=== PATIENT | female | born 1930 ===

== ENCOUNTER 2016-11-02 05:03 | Inpatient (IN) | payer MEDICARE ==
[2016-11-02 05:15] VITALS: BMI 25.5
--- NOTE | 2016-11-02 05:44 | C.PDOC ---
History Of Present Illness Patient BIBA for evaluation of nausea prior to arrival. Patient states her nausea has resolved. Daughter at bedside states patient has had a nonproductive cough fever several days, and had temp of 102.8 prior to ED arrival. 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) Current Symptoms Are (Timing): Better Severity: Mild Past Medical History Reviewed: Historical Data, Nursing Documentation, Vital Signs Vital Signs: Last Vital Signs Temp 98.5 F 11/03/16 15:41 Pulse 60 11/03/16 15:41 Resp 18 11/03/16 15:41 BP 97/59 L 11/03/16 15:41 Pulse Ox 96 11/03/16 15:41 - Medical History PMH: Arthritis, Asthma, Atrial Fibrillation, CAD, Cardia Arrhythmia, CHF, COPD, HTN - [facility] Procedures VACCINATION NEC (09/20/13) Family History: States: No Known Family Hx - Social History Hx Tobacco Use: No Hx Alcohol Use: No Hx Substance Use: No - Immunization History Hx Tetanus Toxoid Vaccination: No Hx Influenza Vaccination: No Hx Pneumococcal Vaccination: No Review Of Systems Except As Marked, All Systems Reviewed And Found Negative. Constitutional: Positive for: Fever Cardiovascular: Negative for: Chest Pain, Palpitations Respiratory: Positive for: Cough. Negative for: Shortness of Breath Gastrointestinal: Positive for: Other (abdominal distention). Negative for: Nausea, Vomiting, Abdominal Pain, Diarrhea Genitourinary: Negative for: Dysuria, Hematuria Physical Exam - Physical Exam Appears: Well, Non-toxic, No Acute Distress, Chronically Ill Skin: Warm, Dry Oral Mucosa: Moist Cardiovascular: Rhythm Irregular (irregularly irregular and tachycardic ) Respiratory: No Accessory Muscle Use, Rales (B/L bases), No Rhonchi, No Wheezing Gastrointestinal/Abdominal: Bowel Sounds, Soft, No Tenderness, Distention, Ascites Back: No CVA Tenderness Extremity: Pedal Edema (+3 pitting edema B/L LEs) Neurological/Psych: Oriented x3 ED Course And Treatment - Laboratory Results Result Diagrams: 11/03/16 13:51 11/03/16 13:51 ECG: Interpreted By Me, Viewed By Me (atrial fibrillation 112 bpm, normal axis, T wave inversions II, III, aVF, V6, no acute ST changes) ECG Interpretation: Abnormal O2 Sat by Pulse Oximetry: 96 (RA) Pulse Ox Interpretation: Normal Progress Note: Blood work, CXR, EKG, UA ordered and reviewed. Patient given PO tylenol and IV digoxin (due to rapid A fib with borderline low BP). Daughter at bedside states patient is DNR/DNI. Patient given PO tylenol for fever, IV digoxin for rapid A fib with borderline low BP. PO ASA given for elevated troponin. IV Rocephin/Azithromycin given for fever - pneumonia vs UTI (UA still pending). - Physician Consult Information Physician Contacted: Trish Leonard Outcome Of Conversation: Discussed patient with Dr. Leonard, agrees with telemetry admission for CHF exacerbation, elevated troponin, fever, leukocytosis , Medical Decision Making Medical Decision Making: differential diagnoses considered: MA/ACS, CHF exacerbation, PE, pneumonia, UTI , COPD/asthma, MA/ACS, intra-abdominal infection (colitis, diverticulitis, pyelonephritis). Disposition - Disposition Disposition: HOSPITALIZED Disposition Time: 06:55 Condition: STABLE - Clinical Impression Clinical Impression: Leukocytosis, Elevated troponin, Fever, Ovarian cancer, Rapid atrial fibrillation, CHF (congestive heart failure) Decision To Admit - Pt Status Changed To: Hospital Disposition Of: Inpatient - Admit Certification Admit to Inpatient:: After my assessment, the patient will require hospitalization for at least two midnights. This is because of the severity of symptoms shown, intensity of services needed, and/or the medical risk in this patient being treated as an outpatient. - InPatient: Physician Admission Certification: I certify that this patient requires 2 or more midnights of care for the following reason:: see notes - . Bed Request Type: Telemetry Admitting Physician: Trish Leonard Patient Diagnosis: Fever, Rapid atrial fibrillation, CHF (congestive heart failure), Leukocytosis , Elevated troponin, Ovarian cancer
[2016-11-02] MEDS ORDERED: Digoxin 500 mcg/2ml (0.5 mg/2ml) Inj IVP STA (05:45)
[2016-11-02 05:49] LABS: VENOUS BLOOD GAS BASE EXCESS 8.3 mmol/L (0.0-2.0); VENOUS BLOOD GAS PCO2 47 mmHg (40-60); VENOUS BLOOD PH 7.46 (7.32-7.43)
[2016-11-02] MEDS ORDERED: Digoxin 500 mcg/2ml (0.5 mg/2ml) Inj ONE (05:51)
[2016-11-02 05:57] VITALS: PULSE 120
[2016-11-02 06:04] LABS: BASO # 0.1 K/uL (0.0-0.2); BASO % 0.4 % (0.0-2.0); EOS # 0.3 K/uL (0.0-0.7); EOS % 2.2 % (0.0-4.0); HEMATOCRIT 34.8 % (34.0-47.0); LYMPH # 0.9 K/uL (1.0-4.3); LYMPH % 5.8 % (20.0-40.0); MEAN CELL VOLUME 83.5 fL (81.0-99.0); MEAN CORPUSCULAR HEMOGLOBIN 26.8 pg (27.0-31.0); MEAN CORPUSCULAR HGB CONC 32.1 g/dL (33.0-37.0); MEAN PLATELET VOLUME 7.6 fL (7.2-11.7); MONO # 0.7 K/uL (0.0-0.8); MONO % 4.6 % (0.0-10.0); PLATELET COUNT 328 K/uL (130-400); RED CELL DISTRIBUTION WIDTH 15.1 % (11.5-14.5)
[2016-11-02 06:12] LABS: INR 2.7
[2016-11-02 06:19] LABS: BLOOD UREA NITROGEN 15 mg/dL (7-17); CALCIUM 9.5 mg/dl (8.6-10.4); CARBON DIOXIDE 30 mmol/L (22-30); CHLORIDE 97 mmol/L (98-107); GFR AFRICAN-AMERICAN > 60; GLUCOSE,RANDOM 110 mg/dL (65-105); SODIUM 137 mmol/L (132-148); TOTAL PROTEIN 7.1 g/dL (6.3-8.3)
[2016-11-02 06:20] LABS: ALB/GLOB RATIO 0.9 (1.0-2.1); ALKALINE PHOSPHATASE 65 U/L (38-126); ALT/SGPT 25 U/L (9-52); AST/SGOT 31 U/L (14-36)
[2016-11-02 06:42] LABS: POTASSIUM 4.5 mmol/L (3.6-5.2)
[2016-11-02 06:43] LABS: EOSINOPHIL 3 % (0-4); NEUTROPHIL 84 % (50-75); TOTAL CELLS COUNTED 100
[2016-11-02] MEDS ORDERED: Azithromycin 500 MG in Sodium Chloride 0.9% 250 ML IVPB STA (06:48)
[2016-11-02] MEDS ORDERED: cefTRIAXone IV 1 gm in Dextros 50 ML IVPB ONE (06:54)
[2016-11-02] MEDS ORDERED: Moxifloxacin IV 400mg/250ml NS 400 MG/250 ML BAG IVPB SCH (07:15)
[2016-11-02 07:23] LABS: RBC URINE 3 /hpf (0-3); URINE BACTERIA RARE (<OCC); URINE BILIRUBIN NEGATIVE (NEGATIVE); URINE BLOOD NEGATIVE (NEGATIVE); URINE COLOR Yellow (YELLOW); URINE GLUCOSE (UA) NORMAL (Normal); URINE KETONE NEGATIVE (NEGATIVE); URINE LEUKOCYTE ESTERASE 2+ Leu/uL (Negative); URINE PROTEIN NEGATIVE (NEGATIVE); URINE UROBILINOGEN NORMAL mg/dL (0.2-1.0); WBC URINE 11 /hpf (0-5)
--- NOTE | 2016-11-02 07:51 | RAD ---
PROCEDURE: CHEST RADIOGRAPH, 1 VIEW HISTORY: cough, fever COMPARISON: Portable chest 05/06/2015. FINDINGS: LUNGS: Clear. PLEURA: No pneumothorax or pleural fluid seen. CARDIOVASCULAR: Prominent cardiac silhouette appears stable. There is no pulmonary vascular derangement appreciated. OSSEOUS STRUCTURES: No significant abnormalities. VISUALIZED UPPER ABDOMEN: Normal. OTHER FINDINGS: Mammilated right hemidiaphragm again evident. IMPRESSION: No acute cardiopulmonary is appreciated. Stable prominent cardiac silhouette.
[2016-11-02] MEDS: Pantoprazole 20 mg EC Tab PO SCH (10:48)
[2016-11-02 11:14] LABS: INR 2.6
[2016-11-02] MEDS: Albuterol-Ipratrop 3 mg / 0.5 (3 ml) UD INH SCH ×4 (13:00→20:01)
[2016-11-02] MEDS: Ciprofloxacin 400mg/200ml D5W 400 MG/200 ML BAG IVPB SCH (13:17)
[2016-11-03] MEDS: Ciprofloxacin 400mg/200ml D5W 400 MG/200 ML BAG IVPB SCH ×2 (00:04→11:24)
[2016-11-03] MEDS: Albuterol-Ipratrop 3 mg / 0.5 (3 ml) UD INH SCH ×5 (00:32→16:01)
--- NOTE | 2016-11-03 03:09 | CON ---
REQUESTING PHYSICIAN: Dr. Bell. LOCATION: Room 663 B DATE OF CONSULTATION: 11/02/2016 HISTORY OF PRESENT ILLNESS: Requested to see this 86-year-old female known to me from many years due to congestive heart failure, atrial fibrillation, and elevated troponin. Her daughter, Ruby, was at the bedside and she gave some of the information. This nice, highly intelligent lady, well known to me for many years, was not feeling well over the last several days with some mild cough, and Ruby, the daughter, who is at the bedside, took her temperature early this morning around 02:00 a.m. and the temperature was 102. The patient was transferred to the emergency room via ambulance in relatively stable condition and multiple investigations pointed out that perhaps she was suffering from some urinary tract infection and on the basis of some of the investigation and blood testing, troponins were done, and they are borderline elevated. She is totally asymptomatic otherwise. She denies any chest pain or shortness of breath. She was in the emergency room, treated empirically with the use of IV antibiotics, and send to telemetry in a stable condition. 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 She was seen by one of our gynecologists here and referred to [place] to MAINTENANCE AND ENGINEERING MANAGER oncologist. The patient has declined any further investigations as well as any probability of any surgical intervention. Nothing done about her ovarian malignancy at this point in time. She is a "do not resuscitate" and "do not intubate." The present situation began several days ago. Actually, I called her a week ago and that she was going to come to the office for followup, but over the last several days, she was not feeling well, which led to the events mentioned above. She denies any chest discomfort whatsoever. Her pulmonary status has remained more or less same; although, she eats sweets and coke at home leading to bouts of congestive heart failure. Recently, her legs have been swollen more due to multiple factors. Also, her lower abdomen with these 2 masses in the pelvic area has also increased in size. She denies any nausea, vomiting, or diarrhea. The cough that she had from few days ago is slightly subsiding. REVIEW OF SYSTEMS: Rest of the review of systems otherwise negative. PAST MEDICAL HISTORY: In addition to the ovarian malignancy, which was evaluated by a MAINTENANCE AND ENGINEERING MANAGER oncologist at [place]; however, biopsies were not done because the patient declined it. She had multiple tumor markers all pointing to ovarian malignancy. She also suffered from hypertensive heart disease, chronic atrial fibrillation, congestive heart failure, previous stroke. She has been taking multiple medications at home and well compensated with the use of losartan, furosemide, spironolactone, warfarin, Digoxin, and iron supplements due to significant anemia. All these entities are very well under control. PHYSICAL EXAMINATION: GENERAL: Reveals an elderly female, highly pleasant, very alert, and well oriented, appears at this point in time in no acute distress. She was eating lunch with the help of her daughter, Ruby; however, she disliked the hospital foods because "they taste like nothing because there is no salt." VITAL SIGNS: Vitals signs are quite stable. Her blood pressure towards the low side has been in the recent past due to all cardioactive medications. Her blood pressure is about 110 systolic. The heart rate is about 78 per minute, atrial fibrillation, which is chronic in nature. Respiratory rate is unremarkable. Temperature on arrival was, according to the daughter, 102. SKIN: Warm and dry. There is significant edema in both lower extremities, more now than the last time that she came to the office. I presume it is all diet-related. ABDOMEN: Significantly distended due to the intraabdominal pelvic malignancy. HEENT: Remains unremarkable for her age. NECK: Supple. No lymphadenopathy or thyromegaly. LUNGS: With some subcrepitations at both bases, but nothing remarkable. No rhonchi or sibilants. HEART: Jugular veins not distended. Sounds irregularly irregular and normal in intensity with a systolic murmur about 2/6 along the left sternal border, which is chronic. ABDOMEN: Significant distention due to underlying pelvic malignancy as well as ascites. CENTRAL NERVOUS SYSTEM: Alert and oriented. No deficits. COMPLEMENTARY DATA: Two troponins borderline elevated at 0.1 and 0.4, without any clinical evidence of acute cardiac deficit. This elevation of troponin is most likely related to chronic atrial fibrillation, CHF, intravenous fluids on top of this extending in the atrium. INR about 2.6-2.7, which has been the normal for the last several months, on warfarin 2.5 mg daily. CBC; white count of 15,000, relatively normal hemoglobin and hematocrit since she has been taking iron supplements at home. Chest x-ray; nothing spectacular. No significant effusion at this point in time. No obvious pulmonary infiltrates. . Renal function also normal. Hypoalbuminemia, which has been present, for several months now, and this contributes also to her edema, etc. EKG; atrial fibrillation with moderate ventricular response, no acute changes, poor R-wave progression related to position. Pro-BNP significantly elevated suggesting heart failure, ranging above 2200 or so. IMPRESSION: 1. Atrial fibrillation, hypertensive heart disease, congestive heart failure. 2. Elevated troponins, most likely related to atrial fibrillation and congestive heart failure. 3. Febrile syndrome, probably secondary to the urinary tract infection or respiratory infection. I was unable to locate the urinalysis. We are looking into that now; although, she denies any urinary symptoms. CONCLUSION AND SUGGESTION: At the present time, the patient is suffering from what appears to be an ovarian malignancy and she wants nothing done. She actually is losing weight quite rapidly over the last several months. She has requested on many occasions no heroics or artificial life support. She declined any intervention when she went to [place] to be evaluated by a employee adviser-oncologist. Insofar as to elevated troponins, it is my impression it is all related to the atrial fibrillation as well as the heart failure and suddenly intravenous fluids were used. Sometimes they stretch the trend more and there is increase with the leak of troponin. I suggested and spoke with the nurse to notify Dr. Bell to stop the aspirin as well as the clopidogrel as she is already on warfarin and this could increase exponentially the risk of bleeding. Insofar as the use of antibiotics also, I suggested to switch everything possible to p.o. She received her Zithromax through IV in the emergency room, which is delivered in 250 mL of 0.9 sodium chloride to receive that one-time dose. However, she is now on Cipro IV twice a day, which is delivered from 200 mL of fluids. I suggest to switch the Cipro to p.o. since the viability of Cipro p.o. and IV is significant. Hopefully, the patient will go home in the next few days as per Dr. Bell. Her wish is to remain at home and to peacefully at home. I see at this point in time no reason for any further cardiological investigations. Arnulfo Aleman MD CC: Dr. Bell PATRICIA
[2016-11-03 08:09] VITALS: TEMP 98.5
[2016-11-03] MEDS: Pantoprazole 20 mg EC Tab PO SCH (09:58)
--- NOTE | 2016-11-03 10:27 | CP.PCM.PN ---
Subjective - Date & Time of Evaluation Date of Evaluation: 11/03/16 Time of Evaluation: 07:45 - Subjective Subjective: PGY2 Resident - Medicine Progress Note Patient seen and examined at bedside, resting comfortably. No overnight events per nursing. Patient was BIBA for evaluation of nausea prior to arrival 11/02/16. Patient reports that her nausea resolved in the ED, and is currently absent. Daughter at bedside states patient has had a nonproductive cough for fever several days prior to admission, with a temp of 102.8 prior to ED arrival. Patient is currently asymptomatic. Of note, she has a recent history of b/l ovarian malignancy, diagnosed at [facility]. The patient has refused biopsy, medical treatment, and wishes to peacefully at home. Palliative care was consulted and offered to the patient / family, however both the patient and her daughters refused the consult, stating she is not in pain and they are not ready for that discussion. They wish to pursue with option with Dr. Bell (PMD) when the need arises. Currently denies fever, chills, headache, changes in vision, chest pain, palpitations, dyspnea, cough, abdominal pain, nausea/vomiting, diarrhea/constipation, dysuria, urinary frequency, change in urinary stream, or any additional acute complaints. ---- Patient is stable for discharge per Dr. Bell. Patient should resume all medications as outlined in this document. Additionally, patient should take the new medications listed below (scripts provided). Please make an appointment and follow up with your Primary Doctor within one week of discharge. Patient should return to ED immediately if symptoms return or worsen. Instructions discussed with patient who understood and agreed. Newly prescribed medications: Cipro 250mg PO Q12H #10 Objective - Vital Signs/Intake and Output Vital Signs (last 24 hours): Temp Pulse Resp BP Pulse Ox 98.5 F 57 L 20 111/68 95 11/03/16 07:30 11/03/16 07:30 11/03/16 07:30 11/03/16 09:58 11/03/16 07:30 Intake and Output: 11/03/16 11/03/16 06:59 18:59 Intake Total 680 Output Total 300 Balance 380 - Medications Medications: Current Medications Acetaminophen (Tylenol 325mg Tab) 650 mg PO Q4 PRN PRN Reason: Pain, Mild (1-3) Albuterol/Ipratropium (Duoneb 3 Mg/0.5 Mg (3 Ml) Ud) 3 ml INH RQ4 [facility] Last Admin: 11/03/16 07:34 Dose: 3 ml Ferrous Sulfate (Feosol) 45 mg PO TID [facility] Furosemide (Lasix) 40 mg PO DAILY [facility] Last Admin: 11/03/16 09:58 Dose: 40 mg Ciprofloxacin (Cipro 400mg/200ml Dsw) 400 mg in 200 mls @ 133 mls/hr IVPB Q12H [facility] Last Admin: 11/03/16 00:04 Dose: 133 mls/hr Losartan Potassium (Cozaar) 25 mg PO DAILY [facility] Last Admin: 11/03/16 09:58 Dose: 25 mg Meclizine HCl (Antivert) 25 mg PO Q8H PRN PRN Reason: Dizziness Pantoprazole Sodium (Protonix Ec Tab) 20 mg PO DAILY [facility] Last Admin: 11/03/16 09:58 Dose: 20 mg Spironolactone (Aldactone) 25 mg PO DAILY [facility] Last Admin: 11/03/16 09:57 Dose: 25 mg Timolol Maleate (Timoptic 0.5% Ophth Soln) 1 drop OU BID [facility] Last Admin: 11/03/16 09:58 Dose: 1 drop - Labs Labs: PT 31.4 SECONDS (9.7-12.2) H* 11/02/16 11:01 INR 2.6 11/02/16 11:01 APTT 38 SECONDS (21-34) H D 11/02/16 11:01 - Additional Findings Additional findings: - Constitutional Appears: Non-toxic, No Acute Distress - Head Exam Head Exam: NORMAL INSPECTION, NORMOCEPHALIC - Eye Exam Eye Exam: PERRL Additional comments: b/l xanthelasmas - ENT Exam ENT Exam: Mucous Membranes Moist, Normal Oropharynx - Neck Exam Neck Exam: Normal Inspection. absent: Lymphadenopathy - Respiratory Exam Respiratory Exam: Clear to Ausculation Bilateral, NORMAL BREATHING PATTERN. absent: Decreased Breath Sounds, Wheezes - Cardiovascular Exam Cardiovascular Exam: Irregular Rhythm, +S1, +S2. absent: Tachycardia - GI/Abdominal Exam GI & Abdominal Exam: Distended (2/2 ovarian CA), Normal Bowel Sounds. absent: Tenderness - Extremities Exam Extremities Exam: Normal Capillary Refill, Pedal Edema (b/l +1 pitting up to knee) - Neurological Exam Neurological Exam: Alert, Awake, Oriented x3 - Psychiatric Exam Psychiatric exam: Normal Affect, Normal Mood - Skin Skin Exam: Normal Color Assessment and Plan - Assessment and Plan (Free Text) Assessment: Atrial fibrillation Assessment & Plan: cardiology consult, f/u recs - stop ASA, stop clopridogrel as pt on Warfarin Resume home dose Coumadin 2.5mg po daily EKG - atrial fibrillation 112 bpm, normal axis, T wave inversions II, III, aVF, V6, no acute ST changes Troponin elevated Status: Acute HTN (hypertension) Assessment & Plan: Resume home dose Losartan 25mg po daily adjust medications as needed Lasix 40 mg PO DAILY [facility] Aldactone 25 mg PO DAILY [facility] Status: Acute COPD (chronic obstructive pulmonary disease) Assessment & Plan: Duoneb 3 Mg/0.5 Mg (3 Ml) Ud) 3 ml INH RQ4 [facility] Status: Chronic Prophylactic measure Protonix 20mg po daily Timolol Maleate 0.5% Ophth Soln) 1 drop OU BID [facility] Cipro 400mg/200ml Dsw) 400 mg in 200 mls @ 133 mls/hr IVPB Q12H [facility] (Feosol) 45 mg PO TID [facility]
[2016-11-03 14:01] LABS: BASO % 0.2 % (0.0-2.0); EOS # 0.1 K/uL (0.0-0.7); EOS % 0.4 % (0.0-4.0); HEMATOCRIT 33.9 % (34.0-47.0); LYMPH # 1.1 K/uL (1.0-4.3); LYMPH % 5.9 % (20.0-40.0); MEAN CELL VOLUME 83.4 fL (81.0-99.0); MEAN CORPUSCULAR HEMOGLOBIN 27.3 pg (27.0-31.0); MEAN CORPUSCULAR HGB CONC 32.7 g/dL (33.0-37.0); MEAN PLATELET VOLUME 7.8 fL (7.2-11.7); MONO # 1.5 K/uL (0.0-0.8); MONO % 7.7 % (0.0-10.0); PLATELET COUNT 322 K/uL (130-400); RED CELL DISTRIBUTION WIDTH 14.4 % (11.5-14.5); WHITE BLOOD COUNT 19.1 K/uL (4.8-10.8)
[2016-11-03 14:11] LABS: INR 3.3
[2016-11-03 14:15] LABS: ALB/GLOB RATIO 0.8 (1.0-2.1); ALKALINE PHOSPHATASE 59 U/L (38-126); ALT/SGPT 23 U/L (9-52); AST/SGOT 24 U/L (14-36); BILIRUBIN,TOTAL 1.3 mg/dL (0.2-1.3); BLOOD UREA NITROGEN 15 mg/dL (7-17); CALCIUM 9.4 mg/dl (8.6-10.4); CARBON DIOXIDE 31 mmol/L (22-30); CHLORIDE 93 mmol/L (98-107); GFR AFRICAN-AMERICAN > 60; GLUCOSE,RANDOM 129 mg/dL (65-105); MAGNESIUM 1.7 mg/dL (1.6-2.3); POTASSIUM 3.9 mmol/L (3.6-5.2); SODIUM 135 mmol/L (132-148); TOTAL PROTEIN 6.3 g/dL (6.3-8.3)
[2016-11-03 14:39] LABS: EOSINOPHIL 1 % (0-4); NEUTROPHIL 85 % (50-75); TOTAL CELLS COUNTED 100
[2016-11-03 14:40] LABS: GIANT PLATELETS PRESENT; LARGE PLATELETS PRESENT; PLATELET CLUMPS PRESENT
[2016-11-03 15:44] VITALS: BP 97/59; PULSE 60; RESP 18; O2SAT 96
--- NOTE | 2016-11-03 15:57 | CP.PCM.PN ---
Subjective - Date & Time of Evaluation Date of Evaluation: 11/03/16 Time of Evaluation: 15:57 Objective - Vital Signs/Intake and Output Vital Signs (last 24 hours): Temp Pulse Resp BP Pulse Ox 98.5 F 60 18 97/59 L 96 11/03/16 15:41 11/03/16 15:41 11/03/16 15:41 11/03/16 15:41 11/03/16 15:41 Intake and Output: 11/03/16 11/03/16 06:59 18:59 Intake Total 680 Output Total 300 Balance 380 - Medications Medications: Current Medications Acetaminophen (Tylenol 325mg Tab) 650 mg PO Q4 PRN PRN Reason: Pain, Mild (1-3) Albuterol/Ipratropium (Duoneb 3 Mg/0.5 Mg (3 Ml) Ud) 3 ml INH RQ4 [facility] Last Admin: 11/03/16 11:12 Dose: 3 ml Ferrous Sulfate (Feosol) 45 mg PO TID [facility] Furosemide (Lasix) 40 mg PO DAILY [facility] Last Admin: 11/03/16 09:58 Dose: 40 mg Ciprofloxacin (Cipro 400mg/200ml Dsw) 400 mg in 200 mls @ 133 mls/hr IVPB Q12H [facility] Last Admin: 11/03/16 11:24 Dose: 133 mls/hr Losartan Potassium (Cozaar) 25 mg PO DAILY [facility] Last Admin: 11/03/16 09:58 Dose: 25 mg Meclizine HCl (Antivert) 25 mg PO Q8H PRN PRN Reason: Dizziness Pantoprazole Sodium (Protonix Ec Tab) 20 mg PO DAILY [facility] Last Admin: 11/03/16 09:58 Dose: 20 mg Spironolactone (Aldactone) 25 mg PO DAILY [facility] Last Admin: 11/03/16 09:57 Dose: 25 mg Timolol Maleate (Timoptic 0.5% Oph Soln) 1 drop OU BID [facility] Last Admin: 11/03/16 09:58 Dose: 1 drop - Labs Labs: 11/03/16 13:51 11/03/16 13:51 PT 38.3 SECONDS (9.7-12.2) H* D 11/03/16 13:51 INR 3.3 11/03/16 13:51 APTT 45 SECONDS (21-34) H D 11/03/16 13:51
--- NOTE | 2016-11-04 00:35 | CARD ---
APPROVED REPORT EKG Measurement Heart [id number] <Conclusion> Atrial fibrillation with rapid ventricular response Low voltage QRS Cannot rule out Anterior infarct, age undetermined Abnormal ECG
--- NOTE | 2016-11-04 08:46 | CP.PCM.PCO ---
Physician Communication Note - Physician Communication Note Physician Communication Note: Family refused consult at this time
--- NOTE | 2016-11-09 17:43 | PCM.HF ---
Heart Failure Core Measure - Heart Failure Left Ventricular Function to be assessed after discharge: Yes BACILIO Inhibitor Prescribed: No Contraindication/Reason for not providing: ARB Beta-Dylan Prescribed: None Contraindication/Reason for not providing: EPISODES OF BRADYCARDIA Angiotensin II Receptor Dylan Prescribed: Yes AnticoagulationTherapy for Atrial Fibrillation/Atrialflutter: Yes Aldosterone Antagonist Prescribed: No Contraindication/Reason for not providing: PT REFUSAL Contraindication/Reason for not providing: PT REFUSAL Implantable Cardioverter Defibrillator Therapy: No Contraindication/Reason for not providing: PT REFUSAL Cardiac Resynchronization Therapy Prescribed: No Contraindication/Reason for not providing: PT REFUSAL - Follow up Will be discharged to: Home Follow Up Date (must be within 7 days from discharge): 11/10/16 Follow Up Time: 09:00
== END 2016-11-03 16:25 | disposition home or self-care (01) | DRG 309 ==
LOC: C.ER 05:03 → C.6T 06:55
PROVIDERS: ADMIT Internal Medicine Pulmonary Disease; ATTEND Internal Medicine Pulmonary Disease
DX: I48.2 Chronic atrial fibrillation (principal); N39.0 Urinary tract infection, site not specified; I50.9 Heart failure, unspecified; I11.0 Hypertensive heart disease with heart failure; J44.9 Chronic obstructive pulmonary disease, unspecified; I25.10 Atherosclerotic heart disease of native coronary artery without angina pectoris; Z86.73 Personal history of transient ischemic attack (TIA), and cerebral infarction without residual deficits; Z66 Do not resuscitate